=== PATIENT | female | born 1990 | race Caucasian/White ===

== ENCOUNTER 2019-01-18 11:28 | Emergency (ER) | payer SELFPAY ==
[~2019-01-18] VITALS: Ht 172.7 cm; Wt 71.0 kg
[2019-01-18 14:21] VITALS: BP 121/77
== END 2019-01-18 14:21 | disposition home or self-care (01) ==
LOC: ER 11:28
DX: L02.215 Cutaneous abscess of perineum (principal); Z90.49 Acquired absence of other specified parts of digestive tract
CPT/HCPCS: 56405; 99283

== ENCOUNTER 2019-01-22 08:03 | Emergency (ER) | payer MEDICAID ==
[~2019-01-22] VITALS: Ht 167.6 cm; Wt 68.0 kg
[2019-01-22 10:00] VITALS: BP 112/79
== END 2019-01-22 10:34 | disposition home or self-care (01) ==
LOC: ER 08:03
DX: Z48.01 Encounter for change or removal of surgical wound dressing (principal); Z87.440 Personal history of urinary (tract) infections; Z90.49 Acquired absence of other specified parts of digestive tract
CPT/HCPCS: 99283